=== PATIENT | male | born 1990 | race American Indian/Alaskan Native ===

== ENCOUNTER 2016-12-23 22:56 | Emergency (ER) ==
[2016-12-23 23:12] VITALS: BP 121/72; TEMP 99.3; BMI 23.1
[2016-12-23] MEDS ORDERED: TORADOL IM STA (23:36)
[2016-12-23] MEDS ORDERED: NORFLEX IM STA (23:36)
--- NOTE | 2016-12-24 00:24 | CT ---
EXAM: CT scan lumbar spine HISTORY: Low back pain COMPARISON: None. FINDINGS: Contiguous axial images obtained through the lumbar spine utilizing 3-mm collimation. Sa gittal and coronal reconstructions were imaged and reviewed.. There is mild loss of the normal lumba r lordosis suggesting paraspinal muscle spasm. The vertebral bodies are normal in height and alignm ent. The facet joints are intact. IMPRESSION: Mild loss normal lumbar lordosis suggesting paraspinal muscle spasm. No acute findings.
--- NOTE | 2016-12-24 00:26 | CT ---
EXAM: CT of the abdomen and pelvis without contrast. HISTORY: Flank pain. PROCEDURE: Contiguous axial CT images of the abdomen and pelvis without contrast with coronal and s agittal reformats. FINDINGS: The liver, gallbladder, pancreas, spleen, adrenal glands and kidneys are normal in appear ance. No nephrolithiasis, ureterolithiasis or hydronephrosis. The abdominal aorta is normal in anya earance. The visualized loops of bowel and appendix are normal in appearance. No free fluid or free air in the abdomen or pelvis. The bladder is adequately filled with no abnormality identified. The seminal vesicles and prostate gland are unremarkable. The bones and soft tissues are unremarkable. Impression: Negative CT of the abdomen and pelvis.
--- NOTE | 2016-12-24 01:03 | ED.PDOC ---
General ED Provider: Dr. MECHE CRUZ-ER Chief Complaint: Back Pain Stated Complaint: my back hurts to move Time Seen by Physician: 23:05 Mode of Arrival: Walk-In Information Source: Patient, Family Exam Limitations: No limitations Nursing and Triage Documentation Reviewed and Agree: Yes Musculoskeletal Complaint Exam - Back Pain Complaint/Exam Mechanism of Injury: Reports: No known trauma Onset/Duration: 24hrs Symptoms Are: Still present Timing: Constant Initial Severity: Mild Current Severity: Mild Location: Reports: Discrete Character: Reports: Dull, Aching, Throbbing, Spasmodic, Stiffness Aggravating: Reports: Movements, Lifting, Bending, Walking Alleviating: Reports: None Associated Signs and Symptoms: Denies: Swelling, Redness, Bruising, Fever, Weakness, Numbness, Tingling, Abdominal pain, Flank pain, Bladder incontinence, Bowel incontinence, Weight loss, Pain with weight bearing TAD Risk Factors: Reports: None AAA Risk Factors: Reports: None Cauda Equina Risk Factors: Reports: None Epidural Abcess Risk Factors: Reports: None Related Surgical History: Reports: None Focal Tenderness: Yes Paraspinal Muscle Tenderness: Yes Paraspinal Muscle Spasm: Yes Scoliosis: No Lordosis: No Kyphosis: No SLR Test: Right Negative, Left Negative Hip Motion Testing Pain: Right Negative, Left Negative Focal Weakness: Present: None Focal Sensory Loss: Present: None Gait: Present: Normal Differential Diagnoses: Herniated Disk, Renal Colic, Strain, Sprain Review of Systems - Review Of Systems Constitutional: Reports: No symptoms Eyes: Reports: No symptoms Ears, Nose, Mouth, Throat: Reports: No symptoms Respiratory: Reports: No symptoms Cardiac: Reports: No symptoms GI: Reports: No symptoms : Reports: No symptoms Musculoskeletal: Reports: Back pain, Muscle pain Skin: Reports: No symptoms Neurological: Reports: No symptoms Endocrine: Reports: No symptoms Hematologic/Lymphatic: Reports: No symptoms All Other Systems: Reviewed and Negative Past Medical History - Past Medical History Endocrine: Reports: Unknown Cardiovascular: Reports: Unknown Respiratory: Reports: Unknown Hematological: Reports: Unknown Gastrointestinal: Reports: Unknown Genitourinary: Reports: Unknown Neuro/Psych: Reports: Unknown Musculoskeletal: Reports: Unknown Cancer: Reports: Unknown - Surgical History General Surgical History: Reports: Unknown - Family History Family History: Reports: Unknown - Social History Smoking Status: Current every day smoker Hx Substance Use: Yes (marijuana) Alcohol Screening: Occasionally Lives: With family - Immunizations Tetanus Shot up to Date: Yes Physical Exam - Physical Exam Appearance: Well-appearing, No pain distress, Well-nourished Pain Distress: Moderate Eyes: HARRISON, EOMI, Conjunctiva clear ENT: Ears normal Neck: Supple Respiratory: Airway patent, Breath sounds clear, Breath sounds equal, Respirations nonlabored Cardiovascular: RRR GI/: Soft Musculoskeletal: Limited ROM Skin: Warm Neurological: Sensation intact, Motor intact, Reflexes intact, Cranial nerves intact, Alert, Oriented Psychiatric: Affect appropriate, Mood appropriate Interpretation - Radiology Interpretation Radiology Interpretation By: Radiologist Radiology Results: Negative Exam Interpreted: CT Scan Critical Care Note - Critical Care Note Total Time (mins): 0 Course - Course Orders, Labs, Meds: Orders Category Date Time Status UA [URINALYSIS C & S IF INDICATED] Stat LAB 12/23/16 23:36 Uncollected Ketorolac Tromethamine [Toradol] MEDS 12/23/16 23:36 Discontinued 60 mg IM ONCE STA Orphenadrine Citrate [Norflex] MEDS 12/23/16 23:36 Discontinued 60 mg IM ONCE STA CT ABDOMEN/PELVIS WO CONTRAST Stat RADS 12/23/16 23:[address] LUMBAR SPINE W/O CONTRAST Stat RADS 12/23/16 23:35 Completed Medications Discontinued Medications Generic Name Dose Route Start Last Admin Trade Name Sumanthq PRN Reason Stop Dose Admin Ketorolac Tromethamine 60 mg 12/23/16 23:36 12/23/16 23:57 Toradol IM 12/23/16 23:37 60 mg ONCE STA Administration Orphenadrine Citrate 60 mg 12/23/16 23:36 12/23/16 23:56 Norflex IM 12/23/16 23:37 60 mg ONCE STA Administration Vital Signs: Temp Pulse Resp BP Pulse Ox 12/23/16 23:04 99.3 F 82 20 121/72 98 Departure - Departure Time of Disposition: 01:05 Disposition: HOME SELF-CARE Discharge Problem: Backache Instructions: Acute Low Back Pain (ED) Condition: Good Pt referred to PMD for follow-up: Yes Additional Instructions: norco 7.5mg q 4hrs prn pain #10--flexeril 10mg tid prn #21--heat alt ice-- recheck in 72hrs ifnot better Allergies/Adverse Reactions: Allergies No Known Allergies Allergy (Unverified 12/23/16 23:12) Home Medications: Ambulatory Orders 1 [No Reported Medications] 12/23/16 Disposition Discussed With: Patient, Family
[2016-12-24 01:46] LABS: BILIRUBIN,URINE 1+ (NEGATIVE); KETONES,URINE Trace (NEGATIVE); LEUKOCYTE ESTERASE ,URINE Negative (NEGATIVE); NITRITE,URINE Negative (NEGATIVE); PROTEIN,URINE 1+ (NEGATIVE); URINE, BLOOD Negative (NEGATIVE)
[2016-12-24 01:47] LABS: ADD URINE MICROSCOPIC YES; BACTERIA,URINE TRACE (NOT PRESENT); SPERM,URINE 1+ (NOT PRESENT)
== END 2016-12-24 02:00 | disposition home or self-care (01) ==
LOC: ED 22:56
DX: M54.5 Low back pain (principal); F17.210 Nicotine dependence, cigarettes, uncomplicated
CPT/HCPCS: 81001; 87086; 96372; 99283

== ENCOUNTER 2017-04-28 07:20 | Outpatient (CLI) | END 2017-04-28 07:21 | disposition home or self-care (01) | LOC: AMBL 07:20 | PROVIDERS: ATTEND Emergency Medicine | DX: S00.03XA Contusion of scalp, initial encounter (principal); S00.83XA Contusion of other part of head, initial encounter; Y00.XXXA Assault by blunt object, initial encounter ==

== ENCOUNTER 2018-09-24 12:46 | Emergency (ER) ==
[2018-09-24 13:05] VITALS: BP 138/84; TEMP 98.7; BMI 25.7
--- NOTE | 2018-09-24 14:01 | CT ---
EXAM: CT of the soft tissue neck without contrast History: Neck trauma. Technique: Multiplanar CT images through the soft tissue neck were obtained following administration of IV contrast Findings: The visualized upper lungs are clear. No acute osseous abnormalities. Mild to moderate d isc space narrowing at C5-6 and C6-7 with prominent anterior osteophytes. No prevertebral soft tissu e swelling. Epiglottis is not thickened. No thyroid nodules are identified by CT. The submandibula r glands and parotid glands are unremarkable. The visualized intracranial contents demonstrate no gr ossly acute findings. Orbits are intact. Mild mucosal thickening of the paranasal sinuses. Mastoid air cells are clear. No peritonsillar inflammation. No lymphadenopathy. Impression: No acute findings
--- NOTE | 2018-09-24 15:40 | ED.PDOC ---
General ED Provider: Dr. PEGGY SALVADOR Chief Complaint: Behavioral Complaint Stated Complaint: SUICIDAL GESTURE Time Seen by Physician: 13:00 (TRIED TO CHOKE HIMSLEF ) Mode of Arrival: Walk-In Information Source: Patient Exam Limitations: No limitations Nursing and Triage Documentation Reviewed and Agree: Yes (pt used to have a job and a car lost his car to his and has no place) Does patient meet sepsis criteria?: No (srays with his mother , worried about her daughter ) System Inflammatory Response Syndrome: Not Applicable Sepsis Protocol: For patient's 13 years and over: Temp is 96.8 and below OR 101 and greater Pulse >90 BPM Resp >20/minute Acutely Altered Mental Status Are patient's symptoms suggestive of a new infection, such as: -Pneumonia -Skin, Soft Tissue -Endocarditis -UTI -Bone, Joint Infection -Implantable Device -Acute Abdominal Infection -Wound Infection -Meningitis -Blood Stream Catheter Infection -Unknown Psychological Complaint Exam - Psychiatric Complaint/Exam Patient Complains Of: Present: Depression, Suicidal thoughts, Suicidal gestures Onset/Duration: 1PM Symptoms Are: Still present Timing: Intermittent Initial Severity: Severe Current Severity: None Character: Present: Fearful, Anxious, Frustrated Aggravating: Reports: None Associated Signs And Symptoms: Reports: Sleep disturbance, Appetite change. Denies: Hostile, Confused, Hallucinating, Paranoid behavior Related History: Reports: Suicidal thoughts, Suicidal plan (CHOKED HIMSELF ), Suicidal gestures, Prior attempts (SUICIDE ), Recent stressors (WOULD NOT ELABORATE ). Denies: Homicidal thoughts, Homicidal plan, Homicidal gestures Patient Accompanied By: Family, Police Patient In Custody Of Police: Yes Social Withdrawal Present: Yes Social Isolation Present: Yes Prior Suicide Attempt: Yes Injury From Prior Suicide Attempt: No Related Surgical History: Reports: None Patient Uncooperative For Exam: No Mood: Present: Agitated, Anxious Appearance: Present: Clean Thought Process: Present: Flight of ideas Insight: Present: Limited Memory: Intact Judgement: Impaired Danger To Others: No Patient Medically Stable For: Psych evaluation Differential Diagnoses: Depression, Suicidal Ideation, Suicidal Gesture Review of Systems - Review Of Systems Constitutional: Reports: No symptoms Eyes: Reports: No symptoms Ears, Nose, Mouth, Throat: Reports: No symptoms Respiratory: Reports: No symptoms Cardiac: Reports: No symptoms GI: Reports: No symptoms : Reports: No symptoms Musculoskeletal: Reports: No symptoms Skin: Reports: No symptoms Neurological: Reports: Emotional problems Endocrine: Reports: No symptoms Hematologic/Lymphatic: Reports: No symptoms All Other Systems: Reviewed and Negative Past Medical History - Past Medical History Previously Healthy: Yes Endocrine: Reports: Unknown Cardiovascular: Reports: Unknown Respiratory: Reports: Unknown Hematological: Reports: Unknown Gastrointestinal: Reports: Unknown Genitourinary: Reports: Unknown Neuro/Psych: Reports: Unknown Musculoskeletal: Reports: Unknown Cancer: Reports: Unknown - Surgical History General Surgical History: Reports: Unknown - Family History Family History: Reports: Unknown - Social History Smoking Status: Current every day smoker Hx Substance Use: Yes (marijuana) Alcohol Screening: Heavy Physical Exam - Physical Exam Appearance: Well-appearing, No pain distress, Well-nourished Eyes: HARRISON, EOMI, Conjunctiva clear ENT: Ears normal, Nose normal, Oropharynx normal Respiratory: Airway patent, Breath sounds clear, Breath sounds equal, Respirations nonlabored Cardiovascular: RRR, Pulses normal, No rub, No murmur GI/: Soft, Nontender, No masses, Bowel sounds normal, No Organomegaly Musculoskeletal: Normal strength, ROM intact, No edema, No calf tenderness Skin: Warm, Dry, Normal color Neurological: Sensation intact, Motor intact, Reflexes intact, Cranial nerves intact, Alert, Oriented Psychiatric: Affect appropriate, Mood appropriate Re-Evaluation - Re-Evaluation Time of Re-Evaluation: 15:52 (pt stated he is no LONGER SUICIDAL , ) Vital Signs Stable: Yes Pain Level: 0 Appearance: NAD Lungs: Clear Skin: Warm and Dry Neuro: Alert and Oriented X3 CV: RRR Critical Care Note - Critical Care Note Total Time (mins): 0 Course - Course Hematology/Chemistry: 09/24/18 13:15 09/24/18 13:15 Orders, Labs, Meds: Lab Review 09/24/18 09/24/18 09/24/18 13:15 13:15 14:40 WBC 13.41 H RBC 6.16 H Hgb 19.1 H Hct 56.2 H MCV 91.2 MCH 31.0 MCHC 34.0 RDW Coeff of Domo 14.0 Plt Count 258 Immature Gran % (Auto) 0.3 Neut % (Auto) 84.6 Lymph % (Auto) 11.8 [place] % (Auto) 2.8 Eos % (Auto) 0.1 Baso % (Auto) 0.4 Immature Gran # (Auto) 0.0 Neut # (Auto) 11.3 H Lymph # (Auto) 1.6 [place] # (Auto) 0.4 Eos # (Auto) 0.0 Baso # (Auto) 0.1 Sodium 144.1 Potassium 4.20 Chloride 104.1 Carbon Dioxide 23.1 Anion Gap 21.10 BUN 4.3 L Creatinine 1.01 Estimated GFR (MDRD) 89.00 BUN/Creatinine Ratio 4.25 Glucose 88.3 Calcium 9.38 Total Bilirubin 0.51 AST 39.4 ALT 37.4 Alkaline Phosphatase 102.1 Total Protein 8.45 H Albumin 4.84 Globulin 3.61 Albumin/Globulin Ratio 1.34 Urine Color Urine Clarity Urine pH Ur Specific [place] Urine Protein Urine Glucose (UA) Urine Ketones Urine Blood Urine Nitrite Urine Bilirubin Urine Urobilinogen Ur Leukocyte Esterase Salicylate Level mg/dL < 1.00 Urine Opiates Screen Negative Ur Oxycodone Screen Negative Urine Methadone Screen Negative Ur Propoxyphene Screen Negative Acetaminophen < 10.0 L Ur Barbiturates Screen Negative U Tricyclic Antidepress Negative Ur Phencyclidine Scrn Negative Ur Amphetamine Screen Negative U Methamphetamines Scrn Negative U Benzodiazepines Scrn Negative Urine Cocaine Screen Negative U Cannabinoids Screen Negative Plasma/Serum Alcohol 189.9 H 09/24/18 14:40 WBC RBC Hgb Hct MCV MCH MCHC RDW Coeff of Domo Plt Count Immature Gran % (Auto) Neut % (Auto) Lymph % (Auto) [place] % (Auto) Eos % (Auto) Baso % (Auto) Immature Gran # (Auto) Neut # (Auto) Lymph # (Auto) [place] # (Auto) Eos # (Auto) Baso # (Auto) Sodium Potassium Chloride Carbon Dioxide Anion Gap BUN Creatinine Estimated GFR (MDRD) BUN/Creatinine Ratio Glucose Calcium Total Bilirubin AST ALT Alkaline Phosphatase Total Protein Albumin Globulin Albumin/Globulin Ratio Urine Color Yellow Urine Clarity Clear Urine pH 7.0 Ur Specific [place] 1.010 Urine Protein Negative Urine Glucose (UA) Negative Urine Ketones Negative Urine Blood Negative Urine Nitrite Negative Urine Bilirubin Negative Urine Urobilinogen 0.2 Ur Leukocyte Esterase Negative Salicylate Level mg/dL Urine Opiates Screen Ur Oxycodone Screen Urine Methadone Screen Ur Propoxyphene Screen Acetaminophen Ur Barbiturates Screen U Tricyclic Antidepress Ur Phencyclidine Scrn Ur Amphetamine Screen U Methamphetamines Scrn U Benzodiazepines Scrn Urine Cocaine Screen U Cannabinoids Screen Plasma/Serum Alcohol Orders Category Date Time Status EKG-(ED ONLY) Stat CARDIO 09/24/18 13:04 Completed ED TELEMARKETING MANAGER APPLIED ONCE EMERGENCY 09/24/18 13:04 Active ACETAMINOPHEN Stat LAB 09/24/18 13:15 Completed BLOOD ALCOHOL Stat LAB 09/24/18 13:15 Completed CBC W/ AUTO DIFF Stat LAB 09/24/18 13:15 Completed COMPREHENSIVE METABOLIC PANEL Stat LAB 09/24/18 13:15 Completed DRUG SCREEN, URINE, RAPID Stat LAB 09/24/18 14:40 Completed SALICYLATE Stat LAB 09/24/18 13:15 Completed URINALYSIS C & S IF INDICATED Stat LAB 09/24/18 14:[address] SOFT TISSUE NECK W/O CONTR Stat RADS 09/24/18 13:10 Completed Vital Signs: Temp Pulse Resp BP Pulse Ox 09/24/18 13:00 98.7 F 128 H 28 H 138/84 99 Departure - Departure Time of Disposition: 15:53 Disposition: TSF SHORT-TRM HOSP Discharge Problem: Normal exam Instructions: Depression (ED), Suicide Prevention (ED) Condition: Good Pt referred to PMD for follow-up: Yes IPMP verified?: No Allergies/Adverse Reactions: Allergies No Known Allergies Allergy (Unverified 12/23/16 23:12) Home Medications: Ambulatory Orders 1 [No Reported Medications] 12/23/16 Disposition Discussed With: Patient, Family
== END 2018-09-24 22:35 | disposition short-term general hospital (02) ==
LOC: ED 12:46
DX: T14.91XA Suicide attempt, initial encounter (principal); X83.8XXA Intentional self-harm by other specified means, initial encounter; F17.210 Nicotine dependence, cigarettes, uncomplicated
CPT/HCPCS: 36415; 80053; 80306; 80307; 81001; 85025; 93005; 93010; 99285

== ENCOUNTER 2018-09-24 22:42 | Outpatient (CLI) ==
[2018-09-24 13:05] VITALS: BMI 25.7
== END 2018-09-24 22:43 | disposition home or self-care (01) ==
LOC: AMBL 22:42
PROVIDERS: ATTEND Family Medicine
DX: R45.851 Suicidal ideations (principal)